=== PATIENT | male | born 1990 | race Caucasian/White ===

== ENCOUNTER → 2018-01-15 | Outpatient (REF) ==
[~2018-01-15] MED LIST: ALBUTEROL0.09 MG/A3 IH; TRILEPTAL
[2018-01-15 16:10] LABS: CARBAMAZEPINE (TEGRETOL) < 3.0 ug/mL (4.0-12.0)
== END ==
LOC: ZLAB.WCH 15:28
PROVIDERS: Internal Medicine
DX: Z01.89 Encounter for other specified special examinations (principal)

== ENCOUNTER → 2018-08-30 | Outpatient (REF) | LOC: ZLAB.WCH 15:48 | DX: Z01.89 Encounter for other specified special examinations (principal) ==